=== PATIENT | female | born 1975 | race Two or more races ===

== ENCOUNTER 2021-05-16 00:18 | Emergency (ER) | payer MEDICAID ==
[~2021-05-16] VITALS: Ht 162.6 cm; Wt 70.0 kg
[2021-05-16] MEDS ORDERED: KETOROLAC 30MG/ML VIAL IV STA (01:17)
[2021-05-16] MEDS ORDERED: SODIUM CHLORIDE 0.9% 1,000 ML IV ONE (01:30)
[2021-05-16 02:29] LABS: BASOPHILS % 0.5 % (0.0-2.0); HEMATOCRIT. 42.4 % (36.0-48.0); HEMOGLOBIN. 13.7 g/dL (12.0-16.0); LYMPHOCYTES % 54.6 % (20.0-50.0); MEAN CORPUSCULAR HEMOGLOBIN 27.4 pg (28.0-32.0); MEAN CORPUSCULAR VOLUME 84.4 fL (81.0-99.0); MEAN PLATELET VOLUME 9.4 fl (7.4-10.4); NEUTROPHILS % 35.9 % (40.0-76.0); PLATELET 212 x1000/uL (130-400); RED BLOOD CELL COUNT 5.02 mill/uL (4.2-5.4); RED CELL DISTRIBUTION WIDTH 14.9 % (11.6-14.6)
[2021-05-16 02:38] LABS: CHLORIDE 110 mEq/L (98-107)
[2021-05-16 02:39] LABS: HCG SCREEN NEGATIVE
[2021-05-16] MEDS ORDERED: IBUP-2028 MT (04:19)
[2021-05-16 04:49] VITALS: BP 138/78
[2021-05-16] MEDS ORDERED: IOHEXOL-300 100 ML BOTTLE ONE (07:29)
== END 2021-05-16 04:55 | disposition home or self-care (01) ==
LOC: ER 00:18
DX: R07.89 Other chest pain (principal); K80.80 Other cholelithiasis without obstruction; J98.59 Other diseases of mediastinum, not elsewhere classified; E01.0 Iodine-deficiency related diffuse (endemic) goiter; F17.210 Nicotine dependence, cigarettes, uncomplicated; Z90.49 Acquired absence of other specified parts of digestive tract; V47.5XXA Car driver injured in collision with fixed or stationary object in traffic accident, initial encounter; Y93.89 Activity, other specified; Y92.488 Other paved roadways as the place of occurrence of the external cause
CPT/HCPCS: 36415; 71045; 71260; 74177; 80053; 83690; 83880; 84484; 84703; 85025; 96360; 99285; J7030; Q9967